=== PATIENT | male | born 2000 ===

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

== ENCOUNTER 2021-10-28 10:13 | Emergency (ER) | payer OTHER ==
[~2021-10-28] VITALS: Ht 172.7 cm; Wt 64.4 kg
[2021-10-28] MEDS ORDERED: VYVANSE20 MG (10:56)
== END 2021-10-28 13:37 | disposition home or self-care (01) ==
LOC: ER 10:13
DX: B34.9 Viral infection, unspecified (principal)